=== PATIENT | female | born 1950 | race Caucasian/White ===

== ENCOUNTER 2017-09-11 12:07 | Inpatient (IN) | payer MEDICARE, BC ==
[2017-09-11] VITALS (9 sets, daily range): BP systolic 103–149; BP diastolic 54–111; PULSE 83–116; TEMP 98.5–101.9
[~2017-09-11] VITALS: Ht 163.8 cm; Wt 78.1 kg
[2017-09-11] MEDS ORDERED: PROTONIX 40MG T40 MG PO (14:46)
[2017-09-11] MEDS ORDERED: ZOCOR 40MG40 MG PO (14:46)
[2017-09-11] MEDS ORDERED: BENICAR 20MG TA20 MG PO (14:47)
[2017-09-11] MEDS ORDERED: QUESTRAN4 GM/9 GM PO (14:48)
[2017-09-12] VITALS (7 sets, daily range): BP systolic 106–127; BP diastolic 57–62; PULSE 73–95; TEMP 98.4–100.2
[2017-09-12 07:47] LABS: MEAN CELL VOLUME 96 fl (80.0-100.0); MEAN CORPUSCULAR HGB CONC 34 g/dl (33.0-37.0); MEAN PLATELET VOLUME 9.5 fl (7.4-10.4); PLATELET COUNT 135 K/mm3 (130-400); RED BLOOD COUNT 2.86 M/mm3 (4.10-5.30); REDCELL DISTRIBUTION WIDTH-CV 13.5 % (11.5-14.5)
[2017-09-12 07:56] LABS: HEMATOCRIT 27.3 % (37.0-47.0); HEMOGLOBIN 9.2 g/dl (12.5-16.0); MEAN CORPUSCULAR HEMOGLOBIN 32 pg (27.0-31.0)
[2017-09-12 07:57] LABS: CALCIUM 7.7 mg/dL (8.4-10.2); CREATININE, serum 1.43 mg/dL (0.52-1.25); POTASSIUM 3.9 mmol/L (3.4-5.0)
[2017-09-13 06:08] VITALS: BP 131/55; PULSE 84; TEMP 99.8
[2017-09-13 09:20] VITALS: BP 135/77; PULSE 86; TEMP 98
[2017-09-13 13:16] VITALS: BP 144/65; PULSE 72; TEMP 98.2
[2017-09-13 14:44] VITALS: TEMP 98.3
[2017-09-13 17:36] VITALS: BP 143/64; PULSE 67; TEMP 98.5
[2017-09-13 22:00] VITALS: BP 147/63; PULSE 76; TEMP 98.5
[2017-09-14 06:00] VITALS: BP 122/49; PULSE 68; TEMP 97.8
[2017-09-14 10:00] VITALS: BP 136/65; PULSE 81; TEMP 97.4
[2017-09-14 11:48] LABS: MEAN CELL VOLUME 94 fl (80.0-100.0); MEAN CORPUSCULAR HGB CONC 34 g/dl (33.0-37.0); MEAN PLATELET VOLUME 9.3 fl (7.4-10.4); PLATELET COUNT 184 K/mm3 (130-400)
[2017-09-14 11:50] LABS: HEMATOCRIT 29.1 % (37.0-47.0); HEMOGLOBIN 9.9 g/dl (12.5-16.0); MEAN CORPUSCULAR HEMOGLOBIN 32 pg (27.0-31.0)
[2017-09-14 11:58] LABS: CALCIUM 9.2 mg/dL (8.4-10.2); CREATININE, serum 1.01 mg/dL (0.52-1.25)
[2017-09-14 12:02] LABS: POTASSIUM 2.9 mmol/L (3.4-5.0)
[2017-09-14 12:08] LABS: ANISOCYTOSIS 1+; BAND 4 % (0-10); LYMPHOCYTE 16 % (20.0-51.0); METAMYELOCYTE 2 % (0-0); NEUTROPHILS 77 % (42.0-75.2); PLATELET ESTIMATE NORMAL (NORMAL)
[2017-09-14 13:46] VITALS: BP 144/60; PULSE 81; TEMP 98.7
[2017-09-14 18:36] VITALS: BP 148/75; PULSE 73; TEMP 97.4
[2017-09-14 21:25] VITALS: BP 140/64; PULSE 85; TEMP 98.8
[2017-09-15 00:31] VITALS: BP 141/54; PULSE 72; TEMP 98.9
[2017-09-15 04:00] VITALS: BP 150/84; PULSE 66; TEMP 98.3
[2017-09-15 07:21] LABS: BASO % 0.3 % (0.0-2.0); EOS % 0.2 % (0-4.0); GRAN # 4.5 (1.4-6.5); GRAN % 73.8 % (42.2-75.2); LYMPH # 1.2 (1.2-3.4); LYMPH % 19.3 % (20.0-51.0); MEAN CELL VOLUME 94 fl (80.0-100.0); MEAN CORPUSCULAR HGB CONC 34 g/dl (33.0-37.0); MEAN PLATELET VOLUME 10.2 fl (7.4-10.4); MONO # 0.2 (0.1-0.6); MONO % 3.9 % (1.7-9.3); PLATELET COUNT 221 K/mm3 (130-400); RED BLOOD COUNT 3.24 M/mm3 (4.10-5.30); REDCELL DISTRIBUTION WIDTH-CV 12.8 % (11.5-14.5)
[2017-09-15 07:23] LABS: HEMATOCRIT 30.3 % (37.0-47.0); HEMOGLOBIN 10.3 g/dl (12.5-16.0); MEAN CORPUSCULAR HEMOGLOBIN 32 pg (27.0-31.0)
[2017-09-15 07:35] LABS: ANION GAP 14 mmol/L (7-16); BLOOD UREA NITROGEN 15 mg/dL (7-17); CARBON DIOXIDE 23 mmol/L (22-30); CHLORIDE 103 mmol/L (98-107); CREATININE, serum 0.96 mg/dL (0.52-1.25); GLUCOSE 168 mg/dL (74-106); POTASSIUM 4.1 mmol/L (3.4-5.0); SODIUM 141 mmol/L (137-145)
[2017-09-15 07:42] LABS: TROPONIN-I < 0.012 ng/mL (0.000-0.034)
[2017-09-15 09:49] VITALS: BP 169/57; PULSE 60; TEMP 98.7
[2017-09-15 13:05] VITALS: BP 146/69; PULSE 89; TEMP 97.9
[2017-09-15 13:06] VITALS: BP 146/69; PULSE 89; TEMP 97.9
== END 2017-09-15 13:30 | disposition home or self-care (01) | DRG 693 ==
LOC: SURG 12:07
PROVIDERS: Physician Assistant; Urology
PROC: 0T768DZ Dilation of Right Ureter with Intraluminal Device, Via Natural or Artificial Opening Endoscopic (ICD-10-PCS; principal; 2017-09-11 14:00)
DX: N20.2 Calculus of kidney with calculus of ureter (principal); J18.9 Pneumonia, unspecified organism; N39.0 Urinary tract infection, site not specified; N17.9 Acute kidney failure, unspecified; I82.5Z3 Chronic embolism and thrombosis of unspecified deep veins of distal lower extremity, bilateral; B96.20 Unspecified Escherichia coli [E. coli] as the cause of diseases classified elsewhere; E87.6 Hypokalemia; I10 Essential (primary) hypertension; Z87.891 Personal history of nicotine dependence
CPT/HCPCS: OP; 99223; 99232-AI; A4314; A9284; A9539; A9540; C1769; C2617; G0378; J0690; J0696; J1885; J2405; J2704; J3010; J7030; J7512; Q9967

== ENCOUNTER 2017-09-29 07:20 | Day surgery (SDC) | payer MEDICARE, BC ==
[~2017-09-29] VITALS: Ht 162.6 cm; Wt 76.1 kg
[~2017-09-29 07:20] MED LIST: BENICAR 20MG TA20 MG PO; PROTONIX 40MG T40 MG PO; QUESTRAN4 GM/9 GM PO; ZOCOR 40MG40 MG PO
[2017-09-29 08:02] VITALS: BP 154/77; PULSE 77; TEMP 97.7
[2017-09-29 11:50] VITALS: BP 137/66; PULSE 72; TEMP 98.8
[2017-09-29 12:05] VITALS: BP 137/66; PULSE 72
[2017-09-29 12:20] VITALS: BP 121/65; PULSE 74
[2017-09-29 12:35] VITALS: BP 140/78; PULSE 84
[2017-09-29 12:50] VITALS: BP 135/72; PULSE 74
== END 2017-09-29 12:59 | disposition home or self-care (01) ==
LOC: SDCO 07:20
DX: N20.2 Calculus of kidney with calculus of ureter (principal); I10 Essential (primary) hypertension; Z87.891 Personal history of nicotine dependence; Z79.899 Other long term (current) drug therapy; E78.00 Pure hypercholesterolemia, unspecified; Z91.041 Radiographic dye allergy status
CPT/HCPCS: C1758; C1769; C2617; J0690; J1100; J1885; J2405; J2704; J3010; J7120